=== PATIENT | female | born 1995 | race Two or more races ===

== ENCOUNTER 2017-04-11 01:51 | Emergency (ER) | payer MEDICAID ==
[2017-04-11] MEDS ORDERED: ONDANSETRON 4 MG/2 ML VIAL ONE (01:54)
[2017-04-11 01:59] VITALS: RESP 16; TEMP 97.9
--- NOTE | 2017-04-11 02:10 | EDPHY ---
H & P Stated Complaint: EtOH Time Seen by Provider: 04/11/17 01:56 HPI/ROS: Chief Complaint: Alcohol intoxication, vomiting HPI: 22-year-old female who was found at a friend's house intoxicated. Patient passed out after vomiting. Is unable to ambulate on their own. Patient brought in by EMS for further evaluation. No obvious signs of trauma per EMS. Remainder of history is unobtainable secondary to the patient's intoxication. ROS: Unobtainable secondary to the patient's intoxication PMH: Unknown Medications: Unknown Allergies: Unknown Social History: Positive for alcohol Family History: non-contributory Physical Exam: Gen: Somnolent, responds to painful stimuli, maintaining airway, smells of alcohol and emesis HEENT: Atraumatic Nose: no epistaxis or deformity Eyes: PERRLA, EOMI Mouth: Moist mucosa Neck: Supple, no step-offs or deformity Chest: Atraumatic, lungs clear to auscultation Heart: S1, S2 normal, no murmur Abd: Soft, non-tender, no guarding Back: Atraumatic Ext: no edema, atraumatic Skin: no rash Neuro: Sensation grossly intact, Strength 5/5 in bilateral upper and lower extremities - Personal History LMP (Females 10-55): Unknown Current Tetanus Diphtheria and Acellular Pertussis (TDAP): Unsure - Medical/Surgical History Other PMH: unknown - Social History Smoking Status: Unknown if ever smoked Constitutional: Initial Vital Signs Temperature (C) 36.6 C 04/11/17 01:56 Heart Rate 86 04/11/17 01:56 Respiratory Rate 16 04/11/17 01:56 Blood Pressure 110/85 H 04/11/17 01:56 O2 Sat (%) 92 04/11/17 01:56 O2 Delivery Mode Room Air Allergies/Adverse Reactions: Unable to Assess Allergy (Unverified 04/11/17 01:55) Home Medications: Medication Instructions Recorded Unobtainable 04/11/17 Medical Decision Making ED Course/Re-evaluation: Patient is now awake and appropriate. Ambulating unassisted to the bathroom. No current complaints. Medically cleared for discharge. - Data Points Medications Given: Discontinued Medications Ondansetron HCl (Zofran) 4 mg IVP EDNOW ONE Stop: 04/11/17 02:34 Last Admin: 04/11/17 02:54 Dose: 4 mg Departure - Departure Disposition: Home, Routine, Self-Care Clinical Impression: Alcoholic intoxication Condition: Good Instructions: Alcohol Intoxication (ED) Additional Instructions: Please try to avoid binge drinking alcohol. Referrals: Patient,NotPresent [Primary Care Provider] - As per Instructions
[2017-04-11] MEDS ORDERED: ONDANSETRON 4 MG/2 ML VIAL IVP ONE (02:33)
[2017-04-11 05:21] VITALS: O2SAT 96
[2017-04-11 06:01] VITALS: BP 116/76; PULSE 76
== END 2017-04-11 06:01 | disposition home or self-care (01) ==
DX: F10.129 Alcohol abuse with intoxication, unspecified (principal)
CPT/HCPCS: 96374; J2405